=== PATIENT | male | born 1995 | race Caucasian/White ===

== ENCOUNTER 2019-05-12 18:05 | Emergency (ER) | payer SELFPAY ==
--- NOTE | 2019-05-12 19:40 | UC ---
Nausea/Vomiting/Diarrhea HPI - HPI Summary HPI Summary: 23-year-old male presents with one-week history of lower abdominal cramping and watery diarrhea. States the cramping is intermittent. Typically occurs after eating however can occur at other times. Cramping is immediately followed by the diarrhea and subsides after defecation. Patient states that earlier today had an episode of severe abdominal cramping that caused him to become lightheaded but denies any syncope. Tolerating fluids well. Reports a decreased appetite. No recent travel out of the country or recent antibiotic use. Has city water and no one else in the household has symptoms. Patient does report that he has had a friend stay with him who reportedly has hepatitis A and hepatitis C. Denies fever, chills, jaundice, nausea, vomiting, blood in stool, or melena. - History of Current Complaint Chief Complaint: UCAbdominalPain Stated Complaint: ABD PAIN, DIARRHEA Time Seen by Provider: 05/12/19 19:17 Hx Obtained From: Patient Pain Intensity: 6 - Allergies/Home Medications Allergies/Adverse Reactions: Allergies Allergy/AdvReac Type Severity Reaction Status Date / Time No Known Allergies Allergy Verified 05/12/19 18:44 Home Medications: Home Medications NK [No Home Medications Reported] 05/12/19 [History Confirmed 05/12/19] PMH/Surg Hx/FS Hx/Imm Hx Previously Healthy: Yes - Denies significant PMH - Surgical History Surgical History: Yes Surgery Procedure, Year, and Place: hypospadia at [age] year old - Family History Known Family History: Positive: Non-Contributory - Social History Occupation: Employed Full-time Lives: Dormitory/Roommates Alcohol Use: Occasionally Substance Use Type: Marijuana Smoking Status (MU): Heavy Every Day Tobacco Smoker Type: Smokeless Tobacco Amount Used/How Often: 1 PPD Household Exposure Type: Cigarettes - Immunization History Vaccination Up to Date: Yes Review of Systems All Other Systems Reviewed And Are Negative: Yes Constitutional: Negative: Fever, Chills Skin: Negative: Other - Jaundice ENT: Positive: Negative Respiratory: Positive: Negative Cardiovascular: Positive: Negative Gastrointestinal: Positive: Abdominal Pain, Diarrhea. Negative: Vomiting, Nausea Genitourinary: Positive: Negative Musculoskeletal: Positive: Negative Neurological: Positive: Negative Is Patient Immunocompromised?: No Physical Exam - Summary Physical Exam Summary: GENERAL APPEARANCE: Alert and cooperative obese young adult male who appears to be in no acute distress. EYES: Conjunctiva clear. Sclera white. EARS: External auditory canals and tympanic membranes clear, hearing grossly intact. NOSE: No nasal discharge. THROAT: Pharynx normal. No tonsilar inflammation, swelling, exudate, or lesions. Uvula midline. NECK: Neck supple, non-tender without lymphadenopathy. CARDIAC: Normal S1 and S2. No S3, S4 or murmurs. Rhythm is regular. There is no peripheral edema, cyanosis or pallor. Extremities are warm and well perfused. Capillary refill is less than 2 seconds. Peripheral pulses intact. LUNGS: Clear to auscultation without rales, rhonchi, wheezing or diminished breath sounds. ABDOMEN: Hyperactive bowel sounds. Soft, nondistended. Mild RLQ and LLQ tenderness without guarding or rebound. No masses or hepatosplenomegally. MUSKULOSKELETAL: ROM intact to all extremities. No joint erythema or tenderness. Normal muscular development. Normal gait. SKIN: Skin normal color, texture and turgor with no lesions or eruptions. Triage Information Reviewed: Yes Vital Signs: Initial Vital Signs Temp 98.4 F 05/12/19 18:45 Pulse 52 05/12/19 18:45 Resp 18 05/12/19 18:45 BP 130/52 05/12/19 18:45 Pulse Ox 100 05/12/19 18:45 Vital Signs Reviewed: Yes Naus/Vom/Diarrhea Course/Dx - Course Course Of Treatment: 23-year-old male presents with one-week history of lower abdominal cramping and watery diarrhea. States the cramping is intermittent. Typically occurs after eating however can occur at other times. Cramping is immediately followed by the diarrhea and subsides after defecation. Patient states that earlier today had an episode of severe abdominal cramping that caused him to become lightheaded but denies any syncope. Tolerating fluids well. Reports a decreased appetite. No recent travel out of the country or recent antibiotic use. Has city water and no one else in the household has symptoms. Patient does report that he has had a friend stay with him who reportedly has hepatitis A and hepatitis C. Denies fever, chills, jaundice, nausea, vomiting, blood in stool, or melena. Afebrile. Vital signs stable. Patient had hyperactive bowel sounds, soft, nondistended abdomen with mild RLQ and LLQ tenderness without guarding or rebound, no masses or hepatosplenomegally, and otherwise unremarkable exam. Discussed with the patient that his symptoms could represent a very broad differential however I do not suspect any acute conditions causing his symptoms. We obtained a CBC and CMP and provided the patient with a stool kit to collect a specimen for stool culture, ova and parasite, and fecal lactoferrin. I have recommended conservative treatment for acute diarrhea at this time. I have discouraged the patient from use of antidiarrheals until we have the lab results and stool cultures back. He is to follow-up with his primary care provider in 2 days for follow-up of his symptoms. Anticipatory guidance and warning symptoms were reviewed with the patient. Verbalizes understanding and agrees with plan of care. - Differential Dx/Diagnosis Differential Diagnoses - Male: Appendicitis, Irritable Bowel Syndrome, Enterocolitis, Gastroenteritis (Viral), Gastroenteritis (Bacterial), Diarrhea Provider Diagnosis: Acute diarrhea, Bilateral lower abdominal cramping Condition At Discharge: Stable Discharge ED - Sign-Out/Discharge Documenting (check all that apply): Patient Departure All imaging exams completed and their final reports reviewed: No Studies - Discharge Plan Condition: Stable Disposition: HOME Patient Education Materials: Acute Diarrhea (ED) Referrals: Js Clark MD [Primary Care Provider] - 2 Days Additional Instructions: Acute diarrhea typically resolves on its own without treatment. The most important consideration with diarrhea is avoiding dehydration. Be sure to drink plenty of fluids. Avoid beverages containing caffeine or artificial sweeteners as these can worsen symptoms. Be sure to eat a well balanced diet. Boiled starches and cereals (potatoes, rice , cream of wheat, oatmeal) as well as food such as crackers, toast, bananas, soups and boiled vegetables are usually recommended if you are having watery diarrhea. Be sure to use good hand hygiene to prevent spreading any possible infection. Use an over the counter pain medication such as acetaminophen (Tylenol) or ibuprofen (Advil, Motrin) according to directions as needed for aches and pains. We will check some basic lab work today and contact you if there are any abnormal findings. You have also been provided with a stool kit to collect a specimen and return for testing. Follow up with your primary care provider in 2 days for recheck of your symptoms. Call tomorrow for an appointment. Seek immediate medical attention in the emergency room if you have fever greater than 100.5 F, have severe abdominal pain, persistent vomiting, blood in your vomit or stool, you become weak or dizzy, or have any worsening of symptoms. - Billing Disposition and Condition Condition: STABLE Disposition: Home
[2019-05-12 20:13] VITALS: BP 132/67
[2019-05-13 12:11] LABS: Hematocrit 48 % (42-52); Hemoglobin 16.5 g/dL (14.0-18.0); Mean Corpuscular HGB Conc 34 g/dL (31-36); Mean Corpuscular Hemoglobin 29 pg (27-31); Mean Corpuscular Volume 85 fL (80-94); Mean Platelet Volume 10.6 fL (7.4-10.4); Platelet Count 240 10^3/uL (150-450); Red Blood Count 5.67 10^6 /uL (4.18-5.48); Red Cell Distribution Width 13 % (10-15); White Blood Count 7.5 10^3/uL (3.5-10.8)
[2019-05-13 12:17] LABS: Albumin 4.7 g/dL (3.2-5.2); Calcium 9.8 mg/dL (8.6-10.3); Total Bilirubin 0.8 mg/dL (0.2-1.0)
[2019-05-13 12:23] LABS: Albumin/Globulin Ratio 2.2 (1-3); BUN/Creatinine Ratio 17.5 (8-20); EGFR African American 147.7 (>60); Globulin 2.1 g/dL (2-4); Total Protein 6.8 g/dL (6.4-8.9)
[2019-05-13 12:55] LABS: ABS Basophils 0.1 10^3/ul (0-0.2); ABS Eosinophils 0.3 10^3/ul (0-0.6); ABS Lymphocytes 1.9 10^3/ul (1.0-4.8); ABS Monocytes 0.6 10^3/ul (0-0.8); ABS Neutrophils 4.7 10^3/ul (1.5-7.7); Eosinophil % 4.2 %; Lymphocyte % 25.2 %; Nucleated Red Blood Cells % 0.4
--- NOTE | 2019-05-14 07:40 | UC ---
- Progress Note Progress Note: CBC, CMP non-actionable. Stool cx pending. No change in treatment plan at this time. Course/Dx - Diagnoses Provider Diagnoses: Acute diarrhea, Bilateral lower abdominal cramping Discharge ED - Sign-Out/Discharge Documenting (check all that apply): Post-Discharge Follow Up All imaging exams completed and their final reports reviewed: No Studies - Discharge Plan Condition: Stable Disposition: HOME Patient Education Materials: Acute Diarrhea (ED) Referrals: Js Clark MD [Primary Care Provider] - 2 Days Additional Instructions: Acute diarrhea typically resolves on its own without treatment. The most important consideration with diarrhea is avoiding dehydration. Be sure to drink plenty of fluids. Avoid beverages containing caffeine or artificial sweeteners as these can worsen symptoms. Be sure to eat a well balanced diet. Boiled starches and cereals (potatoes, rice , cream of wheat, oatmeal) as well as food such as crackers, toast, bananas, soups and boiled vegetables are usually recommended if you are having watery diarrhea. Be sure to use good hand hygiene to prevent spreading any possible infection. Use an over the counter pain medication such as acetaminophen (Tylenol) or ibuprofen (Advil, Motrin) according to directions as needed for aches and pains. We will check some basic lab work today and contact you if there are any abnormal findings. You have also been provided with a stool kit to collect a specimen and return for testing. Follow up with your primary care provider in 2 days for recheck of your symptoms. Call tomorrow for an appointment. Seek immediate medical attention in the emergency room if you have fever greater than 100.5 F, have severe abdominal pain, persistent vomiting, blood in your vomit or stool, you become weak or dizzy, or have any worsening of symptoms. - Billing Disposition and Condition Condition: STABLE Disposition: Home
--- NOTE | 2019-05-16 16:54 | UC ---
- Progress Note Progress Note: Please advise that stool cultures are negative for Shigella (bacteria) and Giardia and Crypto. He will receive a call if there is a report of an infection requiring treatment. Course/Dx - Diagnoses Provider Diagnoses: Acute diarrhea, Bilateral lower abdominal cramping Discharge ED - Sign-Out/Discharge Documenting (check all that apply): Patient Departure All imaging exams completed and their final reports reviewed: No Studies - Discharge Plan Condition: Stable Disposition: HOME Patient Education Materials: Acute Diarrhea (ED) Referrals: Js Clark MD [Primary Care Provider] - 2 Days Additional Instructions: Acute diarrhea typically resolves on its own without treatment. The most important consideration with diarrhea is avoiding dehydration. Be sure to drink plenty of fluids. Avoid beverages containing caffeine or artificial sweeteners as these can worsen symptoms. Be sure to eat a well balanced diet. Boiled starches and cereals (potatoes, rice , cream of wheat, oatmeal) as well as food such as crackers, toast, bananas, soups and boiled vegetables are usually recommended if you are having watery diarrhea. Be sure to use good hand hygiene to prevent spreading any possible infection. Use an over the counter pain medication such as acetaminophen (Tylenol) or ibuprofen (Advil, Motrin) according to directions as needed for aches and pains. We will check some basic lab work today and contact you if there are any abnormal findings. You have also been provided with a stool kit to collect a specimen and return for testing. Follow up with your primary care provider in 2 days for recheck of your symptoms. Call tomorrow for an appointment. Seek immediate medical attention in the emergency room if you have fever greater than 100.5 F, have severe abdominal pain, persistent vomiting, blood in your vomit or stool, you become weak or dizzy, or have any worsening of symptoms. - Billing Disposition and Condition Condition: STABLE Disposition: Home
== END 2019-05-12 20:26 | disposition home or self-care (01) ==
LOC: UCCORT 18:05
DX: R19.7 Diarrhea, unspecified (principal); F17.210 Nicotine dependence, cigarettes, uncomplicated; R10.31 Right lower quadrant pain; R10.32 Left lower quadrant pain
CPT/HCPCS: 36415; 80053; 83630; 85025; 87045; 87046; 87328; 87329; 87899; 99201; G0463

== ENCOUNTER 2019-10-12 16:15 | Emergency (ER) | payer OTHER ==
--- NOTE | 2019-10-12 18:24 | UC ---
Hand/Wrist HPI - HPI Summary HPI Summary: 24-year-old male comes in with chief complaint of right hand pain. In June 2019 patient had injury at work to his right hand where he had a laceration and fractures. He was seen by a hand surgeon in [place]. Since being released back to full duty work he's been having pain in the right hand. 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 When he uses his hand and up getting cramps in the hand. Patient reports that typically his right second and third fingers are somewhat discolored since the injury. Recently has noticed more of his hand has a purplish discoloration. Also notices some decreased sensation on the second finger. - History Of Current Complaint Chief Complaint: UCUpperExtremity Stated Complaint: RIGHT HAND INJURY (WC) Time Seen by Provider: 10/12/19 18:09 Pain Intensity: 8 - Allergies/Home Medications Allergies/Adverse Reactions: Allergies Allergy/AdvReac Type Severity Reaction Status Date / Time No Known Allergies Allergy Verified 10/12/19 17:04 Home Medications: Home Medications NK [No Home Medications Reported] 05/12/19 [History Confirmed 10/12/19] PMH/Surg Hx/FS Hx/Imm Hx Previously Healthy: Yes - Surgical History Surgical History: Yes Surgery Procedure, Year, and Place: hypospadia at [age] year old. R hand - skin grafts, tendon repairs - Family History Known Family History: Positive: Non-Contributory - Social History Alcohol Use: Occasionally Substance Use Type: Marijuana Smoking Status (MU): Light Every Day Tobacco Smoker Type: Smokeless Tobacco Amount Used/How Often: 3-4 cigs/day Household Exposure Type: Cigarettes - Immunization History Vaccination Up to Date: Yes Review of Systems All Other Systems Reviewed And Are Negative: Yes Constitutional: Positive: Negative Skin: Positive: Other - SEE HPI Eyes: Positive: Negative ENT: Positive: Negative Respiratory: Positive: Negative Cardiovascular: Positive: Negative Gastrointestinal: Positive: Negative Motor: Positive: Decreased ROM - RT HAND Neurovascular: Positive: Other - SEE HPI Musculoskeletal: Positive: Other: - SEE HPI Neurological/Mental Status: Positive: Other - SEE HPI Psychological: Positive: Negative Is Patient Immunocompromised?: No Physical Exam Triage Information Reviewed: Yes Appearance: Well-Appearing, No Pain Distress, Well-Nourished Vital Signs: Initial Vital Signs Temp 98.6 F 10/12/19 17:04 Pulse 75 10/12/19 17:04 Resp 15 10/12/19 17:04 BP 141/59 10/12/19 17:04 Pulse Ox 100 10/12/19 17:04 Vital Signs Reviewed: Yes Eye Exam: Normal Eyes: Positive: Conjunctiva Clear Neck: Positive: Supple Respiratory: Positive: No respiratory distress Musculoskeletal: Positive: Other: - Right hand has multiple scars and the second third fingers have decreased range of motion. Prolonged capillary refill throughout the whole hand being worse in the second and third fingers patient reports decreased sensation on the radial aspect of the second finger. Neurological: Positive: Alert Psychological: Positive: Normal Response To Family, Age Appropriate Behavior Skin: Positive: Other - Right hand has prolonged capillary refill. Hand/Wrist Course/Dx - Course Course Of Treatment: I wrote for the patient to be out of work until October 24, 2019. In the meantime patient will follow-up with his surgeon and also follow up with occupational medicine. Patient's get reevaluated sooner if worse or any questions or concerns. - Differential Dx/Diagnosis Provider Diagnosis: Right hand pain, Hand injury Discharge ED - Sign-Out/Discharge Documenting (check all that apply): Patient Departure All imaging exams completed and their final reports reviewed: No Studies - Discharge Plan Condition: Stable Disposition: HOME Patient Education Materials: Hand Fracture (ED) Forms: *Work Release Referrals: Js Clark MD [Primary Care Provider] - Nicola Yun MD [Medical Doctor] - Additional Instructions: FOLLOW UP WITH DR YUN, OCCUPATIONAL MEDICINE AND YOUR ORTHOPEDIST. GET REEVALUATED SOONER IF NOT IMPROVED OR WORSE OR ANY QUESTIONS OR CONCERNS. - Billing Disposition and Condition Condition: STABLE Disposition: Home
[2019-10-12 19:07] VITALS: BP 141/59
== END 2019-10-12 18:31 | disposition home or self-care (01) ==
LOC: UCCORT 16:15
DX: S69.91XA Unspecified injury of right wrist, hand and finger(s), initial encounter (principal); M79.641 Pain in right hand; X50.9XXA Other and unspecified overexertion or strenuous movements or postures, initial encounter; Y92.9 Unspecified place or not applicable; Y99.0 Civilian activity done for income or pay; F17.290 Nicotine dependence, other tobacco product, uncomplicated
CPT/HCPCS: 99211; G0463